=== PATIENT | male | born 1985 | race Caucasian/White ===

== ENCOUNTER → 2019-04-18 09:27 | Outpatient (BNVA) | payer BC, SELFPAY | PROVIDERS: PCP Nurse Practitioner Family; Visit Provider Nurse Practitioner Family | DX: E11.9 Type 2 diabetes mellitus without complications (principal); J11.1 Influenza due to unidentified influenza virus with other respiratory manifestations | CPT/HCPCS: 87804 ==

== ENCOUNTER 2023-06-09 05:50 | Emergency (ER) | payer OTHER, SELFPAY ==
[2023-06-09 05:53] VITALS: BP 178/113; PULSE 66; RESP 14; TEMP 36.6; O2SAT 99; BMI 25.0
--- NOTE | 2023-06-09 05:55 | ECG_ITS ---
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 Measurements Intervals [place] Rate: 61 P: 11 [place]: 197 QRS: 47 QRSD: 93 T: 70 QT: 356 QTc: 361 Interpretive Statements SINUS RHYTHM POSSIBLE RIGHT VENTRICULAR CONDUCTION DELAY [RSR (QR) IN V1/V2] No previous ECG available for comparison Electronically Signed On 06-09-2023 18:29:29 CDT by Michelle Fung M.D. [id number]
--- NOTE | 2023-06-09 06:02 | XRR_ITS ---
PROCEDURE INFORMATION: Exam: XR Chest Exam date and time: 06/09/2023 6:17 AM Age: 37 years old Clinical indication: Pain; Chest pressure; Additional info: Dyspnea/cough TECHNIQUE: Imaging protocol: Radiologic exam of the chest. Views: 1 view. COMPARISON: CT Abdomen/Pelvis Renal [id number] 09/05/2018 12:54 AM FINDINGS: Lungs: Unremarkable. No consolidation. Pleural spaces: Unremarkable. No pleural effusion. No pneumothorax. Heart/Mediastinum: Unremarkable. No cardiomegaly. Bones/joints: Unremarkable. XR/XR chest 1V portable [id number] IMPRESSION: No acute findings.
[2023-06-09 06:09] LABS: Basophils # 0.1 10^3/uL (0.0-0.1); Basophils % 1.1 %; Eosinophils # 0.2 10^3/uL (0.0-0.8); Eosinophils % 2.4 %; Lymphocytes # 1.3 10^3/uL (0.8-4.8); Lymphocytes % 16.6 %; Mean Corpuscular Hemoglobin 27.2 pg (27-33); Mean Corpuscular Volume 82.6 fl (82-101); Monocytes # 0.4 10^3/uL (0.2-0.9); Monocytes % 5.9 %; Neutrophils # 5.54 10^3/uL (1.8-7.7); Neutrophils % 73.7 %; Nucleated Red Blood Cells % 0 %; Platelet Count 300 10^3/cmm (157-399); Red Blood Count 5.33 10^6/uL (3.85-5.65); Red Cell Distribution Width 12.6 % (12.1-15.1); White Blood Count 7.51 10^3/uL (3.29-11.43)
[2023-06-09] MEDS: aspirin 81 mg Chew Tablet 324 MG PO (06:15)
--- NOTE | 2023-06-09 06:16 | ED_ITS ---
HPI - Chest Pain 2 General: Chief Complaint: Chest Pain Stated Complaint: Chest Pains Time Seen by Provider: 06/09/23 05:56 Source: patient Mode of arrival: ambulatory History of Present Illness: 37-year-old male presents emergency room complaining of elevated blood pressure and chest discomfort. He states he woke up around 330 this morning with chest discomfort radiating to his shoulders and his back. Seem to wax and wane and then became more intense about an hour later. It somewhat alleviated now. He does have a history of hypertension he is on amlodipine 2.5 mg daily has not taken that today. No known history of heart disease no previous cardiac evaluation. Patient does report that his father in his mid 60s of an [place]. Patient is a non-smoker and nondrinker. MD complaint: chest pain Onset (ago): hour(s) Timing of current episode: episodic Onset: during rest Pain location: substernal Pain radiation: back Severity: moderate Quality: aching Relieving factors: nothing Exacerbating factors: nothing Associated symptoms: Reports dyspnea; Deny abdominal pain, diaphoresis, fever(s), leg edema, nausea, palpitations, sense of impending doom, syncope or vomiting Review of Systems 2 Const: Denies: fever(s) or diaphoresis Card: Denies: palpitations or syncope Resp: Reports: dyspnea GI: Denies: abdominal pain, nausea or vomiting : Denies: dysuria, urinary frequency or urinary urgency Musc: Denies: neck pain or back pain Skin/Breast: Denies: rash PFSH ED 2 PFSH: Social History Smoking and tobacco/nicotine status: never used tobacco/nicotine Alcohol intake: never Substance/Drug Use: never Adopted: No Marital status: Single Current occupational status: employed Sexually active: Yes Do you think of yourself as: Straight/Heterosexual Current gender identity: Male Physical Exam 2 Const: COMMON NORMALS: no acute distress GENERAL APPEARANCE: cooperative and comfortable ORIENTATION/CONSCIOUSNESS: Yes awake, Yes oriented to person, Yes oriented to place and Yes oriented to time HENMT: COMMON NORMALS: normocephalic, atraumatic and hearing grossly normal bilaterally HEAD & SCALP: normocephalic and atraumatic Resp: COMMON NORMALS: normal respiratory effort, No retractions, No use of accessory muscles and clear to auscultation bilaterally AUSCULTATION: clear to auscultation bilaterally Cardio: COMMON NORMALS: regular rate, regular rhythm and No murmurs present (Cardio) RATE: regular rate RHYTHM: regular rhythm GI: COMMON NORMALS: Soft to palpation and No hepatosplenomegaly present A USCULTATION: Yes normoactive bowel sounds PALPATION: Yes Soft to palpation, No Tenderness to palpation present (GI), No Guarding due to palpation present (GI) and Yes No hepatosplenomegaly present Extremity: COMMON NORMALS: normal to inspection, capillary refill normal, no clubbing, cyanosis or edema, no calf tenderness and no pedal edema Neuro: SENSORIUM/ORIENTATION: Yes oriented to person, Yes oriented to place and Yes oriented to time Skin: COMMON NORMALS: no rashes or lesions noted GENERAL SKIN EXAM: no rashes or lesions noted Course 2 Vital Signs: Vital signs: Vital Signs Temperature 97.9 F 06/09/23 05:53 Pulse Rate 72 06/09/23 09:45 Respiratory Rate 18 06/09/23 07:03 Blood Pressure 145/94 06/09/23 09:45 Pulse Oximetry 97 06/09/23 09:45 Oxygen Delivery Me thod Room Air 06/09/23 08:36 MDM - Chest Pain Medical Decision Making Labs and imaging reviewed. Blood pressure moderately elevated. EKG does not show any acute changes troponin trended normal. Will discharge patient home his description of pain does not sound like acute coronary syndrome. Will discharge him home on baby aspirin daily pantoprazole 40 mg have him follow-up with his primary care doctor return if is any worsening or changes symptoms. Medical Records I reviewed the patient's medical records. Lab Data I reviewed the patient's lab results. 06/09/23 06:01 06/09/23 06:01 Radiology Impressions Chest X-Ray 06/09/23 06:02 IMPRESSION: No acute findings. Laboratory Results WBC 7.51 10^3/uL (3.29-11.43) 06/09/23 06:01 RBC 5.33 10^6/uL (3.85-5.65) 06/09/23 06:01 Hgb 14.50 g/dL (11.27-16.99) 06/09/23 06:01 Hct 44.0 % (37-53) 06/09/23 06:01 MCV 82.6 fl (82-101) 06/09/23 06:01 MCH 27.2 pg (27-33) 06/09/23 06:01 MCHC 33.0 g/dL (30-55) 06/09/23 06:01 RDW 12.6 % (12.1-15.1) 06/09/23 06:01 Plt Count 300 10^3/cmm (157-399) 06/09/23 06:01 MPV 10.0 fL (7.4-10.4) 06/09/23 06:01 Neut % (Auto) 73.7 % 06/09/23 06:01 Lymph % (Auto) 16.6 % 06/09/23 06:01 [place] % (Auto) 5.9 % 06/09/23 06:01 Eos % (Auto) 2.4 % 06/09/23 06:01 Baso % (Auto) 1.1 % 06/09/23 06:01 Neut # (Auto) 5.54 10^3/uL (1.8-7.7) 06/09/23 06:01 Lymph # (Auto) 1.3 10^3/uL (0.8-4.8) 06/09/23 06:01 [place] # (Auto) 0.4 10^3/uL (0.2-0.9) 06/09/23 06:01 Eos # (Auto) 0.2 10^3/uL (0.0-0.8) 06/09/23 06:01 Baso # (Auto) 0.1 10^3/uL (0.0-0.1) 06/09/23 06:01 Nucleated RBC % (auto) 0 % 06/09/23 06:01 Nucleated RBCs # 0.0 /100WBC 06/09/23 06:01 Sodium 142 mmol/L (136-145) 06/09/23 06:01 Potassium 3.8 mmol/L (3.5-5.1) 06/09/23 06:01 Chloride 104 mmol/L (98-107) 06/09/23 06:01 Carbon Dioxide 29 mmol/L (22-29) 06/09/23 06:01 Anion Gap 12.8 (5-19) 06/09/23 06:01 BUN 11 mg/dL (6-20) 06/09/23 06:01 Creatinine 1.0 mg/dL (0.7-1.2) 06/09/23 06:01 GFR Calculation 83.6 mL/min (90-130) L 06/09/23 06:01 Glucose 131 mg/dL (65-115) H 06/09/23 06:01 Calculated Osmolality 295 mOsm/kg (285-295) 06/09/23 06:01 Calcium 9.4 mg/dL (8.5-10.5) 06/09/23 06:01 Total Bilirubin 0.9 mg/dL (0.15-1.2) 06/09/23 06:01 AST 16 U/L (0-40) 06/09/23 06:01 ALT 19 U/L (0-41) 06/09/23 06:01 Alkaline Phosphatase 101 U/L (40-130) 06/09/23 06:01 Troponin T Baseline < 6 ng/L (0-15) 06/09/23 06:01 Troponin T 120 Minute 6.25 ng/L (0-15) 06/09/23 08:06 Delta Troponin T 0.47398 ABS# (0-10) 06/09/23 08:06 Total Protein 7.7 g/dL (6.6-8.7) 06/09/23 06:01 Albumin 4.6 g/dL (3.5-5.2) 06/09/23 06:01 Globulin 3.1 g/dL (1.3-4.6) 06/09/23 06:01 Urine Color Straw (Yellow) 06/09/23 06:21 Urine Appearance Clear (CLEAR) 06/09/23 06:21 Urine pH 7 (5-7) 06/09/23 06:21 Ur Specific [place] 1.010 (1.005-1.030) 06/09/23 06:21 Urine Protein Neg (Negative) 06/09/23 06:21 Urine Glucose (UA) Norm (Normal) 06/09/23 06:21 Urine Ketones Negative (Negative) 06/09/23 06:21 Urine Blood Neg (Negative) 06/09/23 06:21 Urine Nitrate Negative (Negative) 06/09/23 06:21 Urine Bilirubin Neg (Negative) 06/09/23 06:21 Urine Urobilinogen Neg mg/dL (Negative) 06/09/23 06:21 Ur Leukocyte Esterase Negative (Negative) 06/09/23 06:21 All radiology interpretation(s) finalized by discharge Discharge Plan Discharge Patient Disposition: Home Clinical Impression: Atypical chest pain, Chest pain due to GERD Condition: Stable Prescriptions: New Protonix 40 mg tablet,delayed release (DR/EC) 40 mg PO DAILY 56 Days Qty: 30 0RF No Action (DME) Blood Glucose Test Strip See Rx Instructions .ROUTE .MEDSUPPLY Qty: 100 0RF Rx Instructions: As directed amlodipine 2.5 mg tablet 2.5 mg PO QAM Aspir-81 81 mg Tablet,Delayed Release (Dr/Ec) 81 - 162 mg PO DAILY PRN (Reason: Chest Pain) Discharge Orders: Discharge ED (Routine); Ordered 06/09/23 Ordered By: Franck Lee Referrals: Kendrick Martin MD [Primary Care Provider] - Discharge Diet: Usual diet Discharge Activity: Resume usual activity Patient Instructions: Opioid Safety, Pain Management Activity Restrictions/Additional Instructions: Thank you for choosing [facility] for your healthcare needs today. Please realize this is an emergency room and that we are providing you with a medical screening exam and this may not be complete and all inclusive of all the testing and or work up that you may need to determine your ailment or severity of your illness. It is very important that you follow up as instructed or that you return to the Emergency Department should you have concerns or if your condition changes or worsens in any way. Follow-up with your doctor within the next 2 weeks. Coding Level of Care Code ED Pile Driver Operator for Mary Lomeli
[2023-06-09 06:26] LABS: Add Urine Microscopic? NO; Charge for UA Resulting for Rev
[2023-06-09 06:27] LABS: Alanine Aminotransferase 19 U/L (0-41); Albumin Level 4.6 g/dL (3.5-5.2); Alkaline Phosphatase 101 U/L (40-130); Anion Gap 12.8 (5-19); Aspartate Amino Transferase 16 U/L (0-40); Blood Urea Nitrogen 11 mg/dL (6-20); Calcium 9.4 mg/dL (8.5-10.5); Carbon Dioxide 29 mmol/L (22-29); Chloride 104 mmol/L (98-107); Creatinine Clr Calc Pharmacy 113.5118; Globulin 3.1 g/dL (1.3-4.6); Glomerular Filtration Rate 83.6 mL/min (90-130); Glucose 131 mg/dL (65-115); Osmolality Calculated 295 mOsm/kg (285-295); Potassium 3.8 mmol/L (3.5-5.1); Sodium 142 mmol/L (136-145); Total Bilirubin 0.9 mg/dL (0.15-1.2); Total Protein 7.7 g/dL (6.6-8.7); Troponin(5th) Baseline < 6 ng/L (0-15)
[2023-06-09] MEDS: amlodipine 5 mg Tablet PO (06:38)
[2023-06-09 06:40] VITALS: BP 162/104; PULSE 73; RESP 16; O2SAT 98
[2023-06-09 06:52] LABS: Bilirubin Urine Neg (Negative); Blood Urine Neg (Negative); Glucose Urine UA Norm (Normal); Ketones Urine Negative (Negative); Leukocyte Esterase Urine Negative (Negative); Nitrate Urine Negative (Negative); Protein Urine Neg (Negative); Urine Appearance Clear (CLEAR); Urine Color Straw (Yellow); Urobilinogen Urine Neg (Negative); pH Urine 7 (5-7)
[2023-06-09 07:03] VITALS: BP 162/104; PULSE 64; RESP 18; O2SAT 98
[2023-06-09 08:32] LABS: Troponin 5 2HR 6.25 ng/L (0-15); Troponin 5 2HR Delta 0.25001 ABS# (0-10)
[2023-06-09 08:36] VITALS: BP 136/92; PULSE 72; O2SAT 96
--- NOTE | 2023-06-09 08:37 | PC.PHAR ---
pt states the only prescription he takes is amlodipine2.5mg daily pt states not taken today-pt states only otc medication he takes is aspirin 81mg prn for chest pains-
--- NOTE | 2023-06-09 09:27 | ECG_ITS ---
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 Measurements Intervals [place] Rate: 69 P: 8 NM: 207 QRS: 33 QRSD: 93 T: 61 QT: 352 QTc: 379 Interpretive Statements SINUS RHYTHM Compared to ECG 06/09/2023 05:55:03 No significant changes Electronically Signed On 06-09-2023 18:49:21 CDT by Michelle Fung M.D. [id number]
[2023-06-09 09:45] VITALS: BP 145/94; PULSE 72; O2SAT 97
== END 2023-06-09 09:47 | disposition home or self-care (01) ==
PROVIDERS: Emergency Provider Family Medicine; PCP Family Medicine
DX: R07.89 Other chest pain (principal); K21.9 Gastro-esophageal reflux disease without esophagitis; Z79.82 Long term (current) use of aspirin
CPT/HCPCS: 36415; 71045; 80053; 81003; 84484; 85025; 93005; 99285